=== PATIENT | male | born 1975 | race Caucasian/White ===

== ENCOUNTER → 2021-09-27 09:17 | Outpatient (CLI) | payer OTHER, SELFPAY ==
[2021-09-27 12:37] LABS: COVID19 -Nasal RAPID Negative (Negative)
== END ==
PROVIDERS: Visit Provider Family Medicine Sleep Medicine
DX: Z20.822 Contact with and (suspected) exposure to COVID-19 (principal)
CPT/HCPCS: 87635; C9803

== ENCOUNTER 2021-09-29 07:27 | Inpatient (IN) | payer OTHER, SELFPAY ==
[2021-09-21 08:34] VITALS: BMI 31.6
[2021-09-29] VITALS (24 sets, daily range): BP systolic 113–152; BP diastolic 79–105; PULSE 68–98; RESP 12–24; TEMP 36.1–37.1; O2SAT 87–98; BMI 31.6
[2021-09-29] MEDS: ACETAMINOPHEN 325 MG TABLET 975 MG PO (08:12)
[2021-09-29] MEDS: LACTATED RINGERS 1,000 ML 42 ML IV (08:32)
--- NOTE | 2021-09-29 09:18 | PM.PREOP ---
Pre-operative Note COVID-19 COVID-19 status: Negative Result date/Date tested (Pos, Neg/Pending): 09/28/21 Criteria for continued procedure: Expected advancement of disease process, Possibility delay results in more complex future surgery or treatment, Increased loss of function, Continuing or worsening of significant or severe pain, Deterioration of the patient's condition or overall health and Delay expected to result in less-positive ultimate med/surg outcome Interval Note History & Physical reviewed/Exam performed by Physician: Yes Changes to H&P: No
[2021-09-29] MEDS: CEFAZOLIN 2 GM/20 ML SYRINGE IV ×2 (09:42→17:24)
--- NOTE | 2021-09-29 10:02 | SUR.OPER ---
Supine, head on gel donut. Arms padded with gel pads, tucked at sides, towel roll between shoulder blades. Safety belt at thigh. Legs uncrossed. Colbert under Right leg, padded with gel pad. Gel pad under bilateral heels. Tape across forehead. Tape from shoulders to end of table.
--- NOTE | 2021-09-29 12:48 | PM.OP.1 ---
Operative Date/Time/Diagnoses Date of procedure: 09/29/21 Time of procedure: 09:15 Pre-op diagnosis: 1. C4-5, C5-6, C6-7 spinal stenosis 2. C4-5, C5-6, C6-7 spondylosis with radiculopathy Post-op diagnosis: same Procedure & Clinicians Procedure: 1. C4-5 C5-6 C6-7 anterior cervical diskectomy and fusion 2. C4-5 C5-6 C6-7 anterior interbody cage placement 3. C4-5 C5-6 C6-7 anterior instrumentation with plate and screw placement in C4-C5-C6 and C7 vertebrae 4. Utilization of microsurgical technique and operating microscope Same procedure as scheduled: Yes Indications: Patient has been having chronic neck pain and worsening cervical radiculopathy. Patient failed multiple conservative management with worsening pain weakness and numbness in her upper extremity. Patient has been having difficulty performing activity of daily living. After discussing risks benefits of treatment options, patient elected proceed with surgery. Surgeon: Carlyle Burton Program Aide Group Work: Erika Anderson Click Yes if Unassisted: No Anesthesia Type: General Operative Notes Closure Type: primary Specimen(s): none sent Prosthetic devices, grafts, tissues, transplants, or devices: Globus Extend plate, PEEK cages Applied: catheter Estimated Blood Loss (mL): 10 Blood products transfused: none Procedure in detail: Patient was seen in the preoperative area. Risks and benefits of the surgery was discussed with the patient. Operative consent was obtained and placed in the chart. Patient was then taken to the operative room. Prophylactic antibiotic was given less than 0.5 hr prior to skin incision. General anesthesia was administered. Patient was placed into a supine position on her radiolucent table. Bilateral shoulders were taped down to allow proper C-arm imaging. Anterior cervical area was prepped and draped in a sterile fashion. Time-out was performed at this time. Using lateral C-arm imaging, the level between C4 and C7 was identified and marked on patient's neck. A oblique incision from midline towards medial border of sternocleidomastoid muscle was made. The platysma muscle was incised in line with skin incision. Metzenbaum scissor was used to develop the plane between the medial border of sternocleidomastoid d and the strap muscles medially. The carotid sheath and its contents were identified and protected behind the hand-held retractor during the entire case. The plane between the carotid sheath and strap muscles was developed with Metzenbaum scissors. Dissection was made down to the level of the anterior cervical fascia. Longus colli muscle was incised on the anterior aspect of vertebral bodies bilaterally from C4-C7. Spinal needle was placed into the C4-5 disc space and confirmed with lateral C-arm imaging. Using microsurgical technique and operative microscope, anterior cervical diskectomy was performed at C4-5 C5-6 and C6-7 level. This was done by removing the disc material, removing the anterior and posterior osteophytes posterior longitudinal ligaments along with performing bilateral foraminotomies at all 3 levels. Patient was found to have severe central and foraminal stenosis at all 3 levels. Patient's stenosis was fully decompressed after decompression was completed. After the diskectomy was completed, 3 anterior interbody cages were obtained. The cages were packed with DBM bone grafting material. One cage each along with the bone grafting material was then packed into the interbody spaces from C4-C7 with one cage into each interbody level. After the cages were placed, the anterior cervical plate was stabilized to the C4-C7 vertebrae using 2 screws at each each level. Total 8 screws were placed. After confirming placement of the hardware with AP and lateral C-arm imaging, the screws were locked into the plate using the locking mechanism and torque limiting screwdriver. After the hardware was placed and confirmed with AP and lateral C-arm imaging, the wound was irrigated with sterile normal saline. The platysma muscle and the subcutaneous tissue was closed with 2-0 Vicryl. The skin was closed with 4-0 Monocryl and Steri-Strips. Patient tolerated the procedure well. Patient was transferred recovery room in stable condition. There were no complications. Complications: none Post-operative Condition: stable Disposition: PACU Plan for aftercare: Admit to inpatient hospital
--- NOTE | 2021-09-29 13:28 | DI.RAD.S_ITS ---
PROCEDURE: XR CERVICAL SPINE 2V OR 3V INDICATIONS: C4-5-6-7 ACDF TECHNIQUE: Two view(s) of the cervical spine were acquired. COMPARISON: None. FINDINGS/IMPRESSION: 1. Two nondiagnostic it intraoperative fluoroscopic images of the lower cervical spine demonstrate postsurgical changes of C4-C7 ACDF with anterior plate and screws and interbody devices. No acute complicating hardware feature demonstrated. Dictated by: Angelito Membreno M.D. on 09/29/2021 at 15:15 Approved by: Angelito Membreno M.D. on 09/29/2021 at 15:24
[2021-09-29] MEDS: SODIUM CHLORIDE 0.9% 1,000 ML 100 ML IV (15:14)
--- NOTE | 2021-09-29 15:33 | PC.NURSE ---
Addendum entered by Danyelle Haney R.N. 09/29/21 17:33: Pt resting quietly this afternoon. IVF continue. IV ABO infusing as per orders. Soft collar in place, dsg to neck CDI Stable post op course. Call light w/in reach, bed alarm on for pt safety. Continue w/plan of care. Original Note: Pt arrived from PACU @ 1445 Alert/oriented/drowsy Denies discomfort at this time. Dsg to anterior neck CDI IVF infusing as per orders into RFA Call light w/in reach, bed alarm on for pt safety.
[2021-09-29] MEDS: OXYCODONE IR 5 MG TABLET 10 MG PO ×2 (19:49→23:48)
[2021-09-29] MEDS: DOCUSATE 100 MG CAPSULE PO (21:00)
[2021-09-29] MEDS: SENNOSIDES 8.6 MG TABLET 17.2 MG PO (21:00)
[2021-09-30 00:30] VITALS: BP 136/89; PULSE 82; RESP 18; TEMP 37.2; O2SAT 93
[2021-09-30] MEDS: CEFAZOLIN 2 GM/20 ML SYRINGE IV (01:11)
[2021-09-30] MEDS: SODIUM CHLORIDE 0.9% 1,000 ML 100 ML IV (01:18)
[2021-09-30 04:40] VITALS: BP 123/86; PULSE 85; RESP 16; TEMP 37.1; O2SAT 93
[2021-09-30] MEDS: OXYCODONE IR 5 MG TABLET 10 MG PO ×2 (04:45→11:55)
--- NOTE | 2021-09-30 04:47 | PC.NURSE ---
Woke up & went to the BR. After getting out the BR. he was coughing & C/O states I felt I can't breath well, something in my airway. Checked saturation 93-94% in RA, continue coughing & RA SPO2 drops down to 88-89%. Placed 2 liters of 02/NC & sat. 93%. ice pack applied to incision, given ice chips. Dr. TREVINO notified ordered some lozenges, pain level 6-7 medicated with 10 mg. of Oxycodone. Will implement orders & monitor.
[2021-09-30] MEDS: PANTOPRAZOLE DR 20 MG TABLET PO (05:32)
[2021-09-30] MEDS: BENZOCAINE/MENTHOL 1 LOZ PKT 1 EACH PO (05:32)
[2021-09-30 06:50] VITALS: O2SAT 94
[2021-09-30 07:30] VITALS: BP 132/85; PULSE 76; RESP 19; TEMP 36.9; O2SAT 93
--- NOTE | 2021-09-30 07:47 | PM.DS.1 ---
History of Present Illness History of Present Illness Date Patient Seen: 09/30/21 Time Patient Seen: 07:47 Chief complaint: Cervical fusion Narrative: Operative Date/Time/Diagnoses Date of procedure: 09/29/21 Time of procedure: 09:15 Pre-op diagnosis: 1. C4-5, C5-6, C6-7 spinal stenosis 2. C4-5, C5-6, C6-7 spondylosis with radiculopathy Post-op diagnosis: same Procedure & Clinicians Procedure: 1.? C4-5 C5-6 C6-7 anterior cervical diskectomy and fusion 2.? C4-5 C5-6 C6-7 anterior interbody cage placement 3.? C4-5 C5-6 C6-7 anterior instrumentation with plate and screw placement in C4-C5-C6 and C7 vertebrae 4.? Utilization of microsurgical technique and operating microscope Same procedure as scheduled: Yes Indications: Patient has been having chronic neck pain and worsening cervical radiculopathy. Patient failed multiple conservative management with worsening pain weakness and numbness in her upper extremity.? Patient has been having difficulty performing activity of daily living.? After discussing risks benefits of treatment options, patient elected proceed with surgery. Surgeon: Carlyle Burton Service Counter Cashier: Erika Anderson Click Yes if Unassisted: No Anesthesia Type: General Operative Notes Closure Type: primary Specimen(s): none sent Prosthetic devices, grafts, tissues, transplants, or devices: Globus Extend plate, PEEK cages Applied: catheter Estimated Blood Loss (mL): 10 Blood products transfused: none Discharge Providers Provider Date of admission: 09/29/21 07:27 Discharge Date: 09/30/21 Primary care physician: Fab Krueger DO Consults: 09/29/21 08:30 Consult to Respiratory Therapy Evaluate & Treat Comment: Physician Instructions: Evaluate and treat 09/29/21 11:25 Consult to Physician Routine Comment: consult to primary care provider for followup Consulting Provider: Carlyle Burton Reason for consultation: Positive STOP BANG, management of obstructive sleep apnea Has provider been notified: Yes 09/29/21 14:46 Consult to Occupational Therapy Evaluate & Treat Comment: Physician Instructions: Evaluate and treat Consult to Physical Therapy Evaluate & Treat Comment: Physician Instructions: Evaluate and Treat Discharge provider: Erika Anderson PA-C Summary Hospital Course Discharge Diagnosis: s/p C4-7 ACDF Hospital Course: Mr Richardson's hospital course was remarkable for a subjective feeling of airway obstruction during the evening following surgery which was relieved with lozenges and pain medication. On the morning of POD# 1, he was feeling better and wanted to go home. His voice was normal, though he did have minimal pain with swallowing. Voiding and ambulating without difficulty. He was evaluated by PT prior to discharge. Exam Vital Signs (past 8 hours): - 09/30/ 00:30 03// 04:40 Temperature 98.9 F 98.7 F Pulse Rate 82 85 Respiratory Rate 18 16 Blood Pressure 136/89 123/86 Pulse Oximetry 93 93 Oxygen Delivery Method Nasal Cannula Oxygen Flow Rate 2 Narrative Exam Narrative: 5/5 operating room surgical technician strength, 5/5 deltoids, biceps, triceps. Sensation to light touch intact throughout UE. Neck dressing CDI. Const General: cooperative and healthy appearing Orientation: alert, awake and oriented x3 [facility] Medical History (Updated // @ 09:08 by Jasmine Lee RN) Arthritis Depression Eczema GERD (gastroesophageal reflux disease) NITHIN (obstructive sleep apnea) PTSD (post-traumatic stress disorder) Spinal stenosis of cervical region Tinnitus Surgical History (Updated // @ 09:08 by Jasmine Lee, ALANA) Hx of appendectomy Hx of arthroscopy of right knee Hx of umbilical hernia repair Social History household members: significant other Smoking Status: Current every day smoker alcohol intake: former Discharge Assessment & Plan Assessment and Plan Assessment: POD#1 s/p C4-5, C5-6, C6-7 anterior cervical diskectomy and fusion Plan of Treatment: Discharge home w/ soft cervical collar for comfort, multimodal pain control. Discharge Plan Discharge Plan Patient Disposition: Home Discharge orders & Medications Prescriptions: New acetaminophen 500 mg capsule 500 mg PO Q4H MDD max 3000 mg per day PRN (Reason: Pain, Mild (1-3)) Qty: 90 0RF Cepacol Sore Throat (anai-men) 15-3.6 mg Lozenge 1 chantelle PO Q4HR PRN (Reason: Sore Throat) Qty: 16 0RF docusate sodium 100 mg Capsule 100 mg PO BID PRN (Reason: Constipation from narcotic pain meds) Qty: 30 0RF oxycodone 5 mg Tablet 10 mg PO Q3HR PRN (Reason: Pain, Severe (7-10)) Qty: 42 0RF Continued omeprazole 20 MG capsule,delayed release(DR/EC) 20 mg PO QDAY PRN (Reason: GERD) Qty: 0 0RF Discontinued ibuprofen 200 mg Tablet 400 mg PO DAILY PRN (Reason: Pain) 0RF Follow up/Referrals: Carlyle Burton MD [Physician] - As previously scheduled (Follow up with Dr Burton on 10/12/2021 @ 1:20 pm @ [facility] office in [place].) Fab Krueger DO [Primary Care Provider] - Diet/Activity/Treatments Diet: Diet as Tolerated Activity: Wear collar when sitting upright or standing. May take off to eat and shower. Can sleep without collar, but you may find it more comfortable to wear while sleeping. Other treatments: Dressing/Wound care: -Keep dressing in place until postoperative follow-up office visit. -Okay to shower. Keep wound out of direct water stream. Can use PressNSeal plastic wrap to protect from shower stream. No soaking or submerging until all the scabs fall off (approximately 6 weeks). -Please call the office if dressing becomes wet, soiled, or saturated. Activities: -Wear collar when sitting upright or standing. May take off to eat and shower. Can sleep without collar, but you may find it more comfortable to wear while sleeping. -Limit bending, lifting, twisting. -Continue with home exercises as directed by your physical therapist. -Ice your incision as needed for pain/inflammation/swelling. Protect your skin with a folded pillowcase. Follow-up: -Follow-up with your surgeon or PA in the office in 10-14 days after surgery. -Follow-up with your surgeon 6 weeks postoperatively. Call the office if you have chest pain, shortness of breath, significant swelling that will not resolve with elevating, fever over 101?, significantly worsening pain. [facility]: [phone] Skin/Wound/Dressing Care Report to your healthcare provider any signs of infection, such as:: chills, fever, night sweats, increased pain, unusual drainage and unusual redness Dressing: May shower. Leave dressing in place until follow up appointment. Change dressing if it becomes saturated inside. Do not remove steri strips. Visit Report/Discharge Packet Instructions: DI for Anterior Cervical Discectomy and Fusion Stand Alone Forms: Surgery Discharge Discharge Data Primary Care Provider: Fab Krueger Quality VTE Deep Vein Thrombosis/Pulmonary Embolism Present on Admission: No
[2021-09-30] MEDS: DOCUSATE 100 MG CAPSULE PO (08:50)
--- NOTE | 2021-09-30 10:25 | PT.IIE ---
Current Diagnoses Other spondylosis with radiculopathy, cervical region (09/29/21) Spinal stenosis, cervical region (09/29/21) Surgery Performed Operation Date: 09/29/21 08:45 Actual Procedures p C4-5, C5-6, C6-7 ACDF w. anterior instrumentation - Carlyle Burton MD Medical History (Last Updated 09/21/21 @ 09:08 by Jasmine Lee RN) Arthritis Depression Eczema GERD (gastroesophageal reflux disease) NITHIN (obstructive sleep apnea) PTSD (post-traumatic stress disorder) Spinal stenosis of cervical region Tinnitus Physical Therapy Inpatient Evaluation/Re-Eval M1 PT/OT-IP Prior Functional Status Start: 09/30/21 14:06 Freq: NEEDED Status: Active Protocol: Document 09/30/21 10:25 AB (Rec: 09/30/21 14:15 AB [id number]) Medical Review Prior Functional Status Medical History Reviewed Yes Communication able to make needs known Mobility and Gait pt stated that he is independent with all mobilities and ambulation without AD Social History Household Members significant other Living Arrangements House Number of Floors (Floors) Two Floors Number of Stairs To Enter/Railing? 2 steps L rail to enter 10 steps L rail to get to bedroom level Home Environment Standard Height Toilet,Walk in Shower Home Equipment Hand Held Shower,Grab Bars In Shower M2 PT-IP Current Condition Start: 09/30/21 14:06 Freq: NEEDED Status: Active Protocol: Document 09/30/21 10:25 AB (Rec: 09/30/21 14:15 AB [email or web address]) Physical Therapy Current Condition Current Condition Evaluation Date 09/30/21 Treatment Diagnosis s/p C4-5, C5-6, C6-7 ACDF; difficulty in walking Onset Date 09/29/21 M3 PT-IP Subjective Start: 09/30/21 14:06 Freq: NEEDED Status: Active Protocol: Document 09/30/21 10:25 AB (Rec: 09/30/21 14:15 AB [email or web address]) Subjective Physical Therapy Visit Type Type Initial Evaluation Visit Start Time 10:25 Visit Stop Time 10:43 Total Visit Minutes 18 Number of LINEWORKER Visits 0 Physical Therapy Visit Comments Patient Comments pt is agreeable to do PT Therapy Pain Assessment Pain When Pain Assessed At Rest Pain Present Pain Present Pain Reported Location Anterior Neck Intensity 5 Scale Used Numeric (0 - 10) Pain Management Techniques Apply Cold,Modification of Treatment,Re-positioning, Timing of Activity with Medications M4 PT-IP Mobility and Gait Start: 09/30/21 14:06 Freq: NEEDED Status: Active Protocol: Document 09/30/21 10:25 AB (Rec: 09/30/21 14:15 AB [email or web address]) PT-Bed Mobility Assessment Rolling Type of Rolling Log Rolling Level of Assist Standby Assistance Supine to Sit Supine to Sit Standby Assistance Sit to Supine Sit to Supine Standby Assistance PT-Transfer Assessment Sit to and From Stand Sit to and from Stand Standby Assistance,Use of Upper Extremities Equipment Transfer Assistive Device None,Gait Belt Orthotic/Prosthetic Devices or Brace: Yes Comments Mobility Comments educated pt regarding cervical precautions and log roll bed mobility. completed log roll bed mobility supine to sit SBA . completed sit to stand SBA and ambulated toward the mirror. educated pt and spouse regarding soft collar management. pt agreed to ambulate and do stairs. pt ambulated in the hallway without AD SBA. completed up/ down steps using L rail ascending sBA. pt ambulated back to his room and requested back to bed. log roll sit to supine SBA. positioned pt in bed. call light and table placed within reach. ice pack provided. Pt and spouse without any other questions. Gait Assessment Gait Gait Assistance Required: Standby Assistance Distance (Feet) 125 Able to Maintain Weight Bearing Status Yes During Gait Assistive Devices Assistive Device None Orthotic/Prosthetic Devices or Brace: Yes Gait Deviations General Gait Pattern Antalgic Factors Limiting Gait Function Factors Limiting Gait Function Decreased Activity Tolerance, Limited Range of Motion,Pain Stair Climbing Assessment Evaluation Level of Assist On Stairs Standby Assistance Devices Stair Climbing Assistive Devices Left Railing Technique/Endurance Stair Climbing Direction Ascend and Descend Stair Climbing Technique Step Over Step Number of Steps Climbed 3 Query Text: Stair Climbing Set # Repetitions (reps) 2 PT-Balance Assessment Sitting Balance and Reactions Static Sitting Balance Ability Normal Dynamic Sitting Balance Ability Normal Standing Balance and Reactions Static Standing Balance Ability Good Dynamic Standing Balance Ability Good Device Used without AD M5 PT-IP Objective Assessments Start: 09/30/21 14:06 Freq: NEEDED Status: Active Protocol: Document 09/30/21 10:25 AB (Rec: 09/30/21 14:15 AB [email or web address]) Orientation Orientation/Cognition Level of Alertness Alert Orientation Name,Age,Birthday,Month,Date, Year,Day of Week,Place, Situation Language Function Ability No Deficits Noted Safety Awareness Understands Safety Issues Memory Description No Deficits Noted Gross Range of Motion Lower Extremity ROM Assessment Within Functional Limits Strength Lower Extremity Strength Assessment Within Functional Limits Coordination Assessment Gross Coordination Gross Coordination WNL Sensation Assessment Sensation Gross Sensation WNL Muscle Tone Muscle Tone WNL Yes M6 PT-IP Treatment Start: 09/30/21 14:06 Freq: NEEDED Status: Active Protocol: Document 09/30/21 10:25 AB (Rec: 09/30/21 14:15 AB [id number]) Physical Therapy Treatment Education Education Provided Precautions,Weight Bearing Status,Post-Op Packet,Safety M7 PT-IP Assessment and Plan Start: 09/30/21 14:06 Freq: NEEDED Status: Active Protocol: Document 09/30/21 10:25 AB (Rec: 09/30/21 14:15 AB [email or web address]) PT Summary Assessment and Plan Potential Rehabilitation Potential Good Status of Condition at Evaluation Stable Summary Impairments Pain,ROM,Strength,Balance, Coordination,Sensation,Tone, Cognition,Bed Mobility, Transfers,Gait,Activity Tolerance Assessment Summary pt requiring SBA with mobility and will have his spouse to assist him at home. pt may go home when medically stable. Goals Bed Mobility Goal Independent Transfer Goal Independent Gait Goal Independent Gait Distance 300 Other Goals up/down 10 steps L rail ascending mod I Days to Meet Goals 3 Frequency of Treatment Frequency Of Treatment Twice a Day Treatment Plan Physical Therapy Treatment Plan Bed Mobility Training,Transfer Training,Gait Training, Therapeutic Exercise,Balance Retraining,Post Op Education, Discharge Planning,Hot or Cold Pack,Neuromuscular Re-ed, Coordination Retraining,Manual Therapy Precautions Cervical Spine Precautions Soft Collar for Comfort,No Heavy Lifting,Log Roll Recommendations To Nursing Amount of Assist Needed Standby Assistance Discharge Recommendations PT Discharge Recommendations Home with Assistance, Outpatient PT Transportation Needs at Discharge Private Vehicle
--- NOTE | 2021-09-30 10:36 | CM.DANOTE ---
DCP: Case received, EMR reviewed and met with patient. Introduced self and role. Was able to obtain information regarding patient's baseline activity status prior to hospitalization. DCP assessment completed with information currently available. Patient is a 46 year old male who admitted yesterday morning to the care of the orthopedic team. PCP: Dr. Krueger. Payer: confirmed: Asher Garcia. Patient came to the hospital via private vehicle for a surgical procedure. Patient had C4-5, C5-6 Anterior Cervical Diskectomy. Patient has history of spinal stenosis, cervical region. Met with patient in his room. He had neck collar in place, sitting up in bed, alert and oriented. Patient resides in [place] with life partner, Bessie. He is independent at his baseline. Confirmed with him that he will have support at home with his partner. P: Patient has discharge orders for home today after being cleared by P.T. Selina Xiao RN/Motor Route Carrier Discharge Planning/Care Management CM Discharge Assessment Start: 09/30/21 10:34 Freq: Status: Active Protocol: Document 09/30/21 10:35 (Rec: 09/30/21 10:36 [id number]) Discharge Planning Assessment Assigned Emergency Department Physician Selina Xiao RN/Motor Route Carrier Advance Directives? No History Provided By Patient,Medical Record Prior Living Arrangements House Household Members significant other Type of transporation used prior to Drives own vehicle admit Independent with ADL's Yes Is patient alert and oriented? Yes Caregiver for Another No Barriers to Discharge No Discharge Plan Home Transportation Arrangement Life Partner Referrals Initiated None needed Whiteboard Updated in Patient Room with Yes name and ext. # of Emergency Department Physician Review Status In Process Next Review Type Continued Stay Review Pre-Anesthesia Assessment Start: 09/21/21 08:34 Freq: Status: Complete Protocol: Document 09/21/21 08:34 CAB (Rec: 09/21/21 09:29 CAB [id number]) Pre-Anesthesia Assessment Patient Information Reviewed Via Phone Assessment Assessment Completed With Patient H&P Completed Within 30 Days Yes Diagnostic Results BMP/CMP,CBC,PT/INR Comment Outside labs scanned, COVID screen @ [facility] 09/27/21 Primary Care Provider Fab Krueger Seen Specialist in Last 12 Months Yes Specialist Seen Orthopedist Primary Language Cuban Bootmaker Hand Required No Height 5 ft 11 in Weight 227 lb Body Mass Index (BMI) 31.6 Hearing Ability Normal Visual Assist Contacts Dentition Type Teeth, Natural Present Barriers to Learning None Hx Anesthesia Reactions No Hx Family Anesthesia Reaction No Hx Malignant Hyperthermia No Hx Blood Transfusions No Anesthesia Review Requested No alcohol intake former Smoking Status Current every day smoker Tobacco type cigarettes Smoking packs per day 0.5 Substance Use Type does not use Pain Present Pain Reported Musculoskeletal Symptoms Joint Pain,Limited Range of Motion,Muscle Weakness,Neck Pain,Numbness,Radiating Pain into Limb,Tingling History of Falling (Recent or History of No ) Patient is completely paralyzed or No completely immobile Mental Status Oriented to own ability Is patient on oxygen? No Does patient have WILLIS/SOB No Hx Sleep Apnea Yes CPAP/BIPAP use prescribed not used Currently Taking a Beta Ace No Can You Climb a Flight of Stairs Without Yes SOB Hx Chest Pain No Hx SOB No Hx Syncope or Dizziness Yes: With quick positional changes Anti-Coagulant Therapy No Has a Chief Engineer Waterworks No Cardiac Testing No Hx Pacemaker/ICD No Pacemaker Rep Required? No Cardiac Clearance Received Not Applicable Diet Type At Home Regular dysphagia No Gastrointestinal Symptoms Reflux Urinary Catheter Present No Hx Urinary Self Catheterization No Diabetes No Hx Drug Resistant Organism No Presence of External or Internal Medical No Devices Have you had any close contact with Yes: Pt had Covid approx 1.5 someone diagnosed with COVID-19? years ago Received a COVID vaccine? Yes: J&J Received all doses? Yes Marital Status Lives With significant other Prior Living Arrangements House Number of Floors (Floors) Two Floors Support System Significant Other Does the Patient Have Assistance After Yes Surgery Patient Discharge Plan Description Return Home Comment Pt advised overnight length of stay per surgeon Feels Safe in Current Environment Yes Been Physically Hurt or Threatened By a No Person in Current Environment Do you have thoughts of harming yourself None or others? Are you currently considering suicide? No Do you have a plan to hurt yourself or No Plan others? Do You Have Any Spiritual Beliefs That No May Affect Your HC Choices? Do You Have Any Cultural Practices That No May Affect Your HC Choices? Who Can We Speak to About Patient's Care Family, friends Identifying Code for Release of Patient Declines to issue Information Health Care Proxy/Next of Kin Bessie (S.O.) Health Care Proxy Emergency Contact Name Shelly (daughter) Emergency Contact Advance Directives? No Power of Integration Software Engineer No PAC Instructions Medications to take/avoid, Nasal antibiotic,No ETOH/ petroleum product on skin DOS, NPO,Post-op transportation,Pre -surgical wash,Sensory aids, Sturdy shoes/comfortable clothes,Do not bring valuables and remove jewelry
[2021-09-30 11:02] VITALS: BP 123/86; PULSE 74; RESP 21; TEMP 37.1; O2SAT 95
--- NOTE | 2021-09-30 11:57 | OT.IPNOTE ---
Pt not wanting to get up at this time and able to go over ADL-especially for oral care, eating, and dressing needs. Pt has a supportive partner to assist him for needs. Per PT is clear from physical therapy needs. NO charge. Pt being discharged today.
--- NOTE | 2021-09-30 12:39 | PC.NURSE ---
Discharge note: Patient discharged home per MD order, cleared by PT/OT. Discharge instructions given to both patient and significant other, discussed importance of both new medications, mobility precautions, and F/U with Ortho on 10/12. Educated regarding signs of worsening symptoms. Both verbalized understanding of instructions. Home via private vehicle, Rx to be picked up at [facility] in [place].
== END 2021-09-30 12:30 | disposition home or self-care (01) | DRG 473 ==
PROVIDERS: Admitting Provider Orthopaedic Surgery Orthopaedic Surgery of the Spine; PCP Family Medicine; Referring Provider Family Medicine; Visit Provider Orthopaedic Surgery Orthopaedic Surgery of the Spine
PROC: 0RG20A0 Fusion of 2 or more Cervical Vertebral Joints with Interbody Fusion Device, Anterior Approach, Anterior Column, Open Approach (ICD-10-PCS; principal; 2021-09-29 08:45)
DX: M47.22 Other spondylosis with radiculopathy, cervical region (principal); M48.02 Spinal stenosis, cervical region; M25.78 Osteophyte, vertebrae; K21.9 Gastro-esophageal reflux disease without esophagitis; J02.9 Acute pharyngitis, unspecified; F17.200 Nicotine dependence, unspecified, uncomplicated; Z20.822 Contact with and (suspected) exposure to COVID-19
CPT/HCPCS: 72040; 76000; 94760; 97161; 99406; C1713; J0330; J0690; J1100; J1170; J2250; J2405; J2704; J3010